=== PATIENT | male | born 1945 | race Caucasian/White ===

== ENCOUNTER 2023-12-03 11:06 | Emergency (ER) | payer MEDICARE, OTHER ==
[~2023-12-03] VITALS: Ht 167.6 cm; Wt 73.9 kg
[2023-12-03] MEDS ORDERED: ATOR40TA75 PO (11:20)
[2023-12-03] MEDS ORDERED: OMEP40CA4 PO (11:20)
[2023-12-03] MEDS ORDERED: ECOT81TA5 PO (11:20)
[2023-12-03] MEDS ORDERED: TRAZ-189 PO (11:20)
[2023-12-03] MEDS ORDERED: ATOR80TA59 PO (11:20)
[2023-12-03 12:27] LABS: VENOUS BASE EXCESS -3.2 (-2.0-2.0); VENOUS HCO3 23.2 MMOL/L (23.0-27.0); VENOUS O2 SATURATION 66.5 % (60.0-80.0); VENOUS PARTIAL PRESSURE CO2 46.5 mmHg (38.0-50.0); VENOUS PARTIAL PRESSURE O2 38.9 mmHg (30.0-50.0); VENOUS PH 7.315 UNITS (7.330-7.430); VENOUS STANDARD HCO3 21.1 MMOL/L; VENOUS TOTAL CO2 24.6 MMOL/L (24.0-28.0)
[2023-12-03 12:33] LABS: BASO # 0.1 10^3/uL (0.0-0.2); BASO % 0.7 % (0.0-1.0); EOS # 0.2 10^3/uL (0.0-0.5); EOS % 2.3 % (0.0-3.0); HEMATOCRIT 39.6 % (42.0-52.0); HEMOGLOBIN 12.6 g/dl (13.5-17.5); LYMPH # 0.8 10^3/uL (1.5-5.0); LYMPH % 11.5 % (24.0-44.0); MEAN CORPUSCULAR HEMOGLOBIN 26.5 pg (27.0-33.0); MEAN CORPUSCULAR HGB CONC 31.8 g/dl (32.0-36.5); MEAN CORPUSCULAR VOLUME 83.2 fl (80.0-96.0); MONO # 0.5 10^3/uL (0.0-0.8); NEUTROPHILS # 5.4 10^3/uL (1.5-8.5); NEUTROPHILS % 78.1 % (36.0-66.0); PLATELET COUNT, AUTOMATED 291 10^3/uL (150-450); RED BLOOD COUNT 4.76 10^6/uL (4.30-6.10)
[2023-12-03 13:01] LABS: CK-MB VALUE MASS 8.2 NG/ML (<3.6)
[2023-12-03 13:04] LABS: ALBUMIN 3.6 G/DL (3.2-5.2); ALKALINE PHOSPHATASE 116 U/L (46-116); ALT/SGPT 43 U/L (7.0-40); AST/SGOT 38 U/L (<34); BILIRUBIN,DIRECT 0.6 MG/DL (<0.4); BILIRUBIN,TOTAL 1.6 MG/DL (0.3-1.2); BLOOD UREA NITROGEN 18 MG/DL (9-23); CARBON DIOXIDE LEVEL 29 MMOL/L (20-31); CHLORIDE LEVEL 109 MMOL/L (98-107); CREATININE FOR GFR 0.65 MG/DL (0.70-1.30); GLOMERULAR FILTRATION RATE > 60.0 (>42); GLUCOSE, FASTING 90 MG/DL (74-106); POTASSIUM SERUM 3.7 MMOL/L (3.5-5.1); SODIUM LEVEL 144 MMOL/L (136-145); TOTAL PROTEIN 6.3 G/DL (5.7-8.2)
[2023-12-03 13:06] LABS: FREE T4 1.04 NG/DL (0.89-1.76)
[2023-12-03 13:07] LABS: THYROID STIMULATING HORMONE 1.645 uIU/ML (0.55-4.78)
[2023-12-03 13:19] LABS: CPK CREATINE PHOSPHOKINASE 301 U/L (46-171); MB/CK RELATIVE INDEX 2.72 (< OR =4)
[2023-12-03] MEDS ORDERED: ISOVUE-370 76% 100ML VIAL As Ordered ONE (13:29)
[2023-12-03 14:48] LABS: INR 1.34; PARTIAL THROMBOPLASTIN TIME 34.9 SECONDS (24.8-34.2); PROTHROMBIN TIME 16.2 SECONDS (12.5-14.5)
[2023-12-03] MEDS: cefTRIAXone SOD 1 GM in D5W MINI-BAG PLUS 50 ML IV ONE (14:49)
[2023-12-03] MEDS: AZITHROMYCIN 250MG TABLET PO ONE (14:49)
[2023-12-03] MEDS: ASPIRIN 81MG CHEW TABLET PO ONE (14:49)
[2023-12-03] MEDS: HEPARIN SOD (PORCINE) 5000UNITS/ML 1ML VIAL/SYRINGE IV ONE (15:50)
[2023-12-03] MEDS: HEPARIN DRIP 25,000 UNITS in IV 1 EA IV SCH (15:51)
[2023-12-03] MEDS: CLOPIDOGREL 300 MG TAB (PLAVIX) PO ONE (15:51)
[2023-12-03] MEDS: FUROSEMIDE 40MG/4ML VIAL IV ONE (15:51)
[2023-12-03 16:47] VITALS: BP 143/92; TEMP 97; O2SAT 99
== END 2023-12-03 16:53 | disposition short-term general hospital (02) ==
LOC: M ED 11:06
DX: I21.4 Non-ST elevation (NSTEMI) myocardial infarction (principal); R00.0 Tachycardia, unspecified; I44.7 Left bundle-branch block, unspecified; I50.22 Chronic systolic (congestive) heart failure; R91.1 Solitary pulmonary nodule; E04.1 Nontoxic single thyroid nodule; J43.9 Emphysema, unspecified; I25.119 Atherosclerotic heart disease of native coronary artery with unspecified angina pectoris; E78.5 Hyperlipidemia, unspecified; K21.9 Gastro-esophageal reflux disease without esophagitis; Z87.891 Personal history of nicotine dependence; Z79.1 Long term (current) use of non-steroidal anti-inflammatories (NSAID); Z79.899 Other long term (current) drug therapy
CPT/HCPCS: 71045; 71275; 80047; 80048; 80076; 82550; 82553; 82803; 83605; 83880; 84439; 84443; 84484; 85025; 85610; 85730; 87040; 87486; 87581; 87633; 87798; 93005; 93041; 94760; 96374; 96375; 99285; J0696; J1940; Q9967